=== PATIENT | male | born 1975 | race Caucasian/White ===

== ENCOUNTER 2018-12-07 20:27 | Emergency (ER) | payer OTHER ==
[2018-12-08] MEDS: ACETAMINOPHEN 500 MG TAB PO (00:43)
[2018-12-08] MEDS: IBUPROFEN 800 MG TAB PO (00:43)
[2018-12-08] MEDS: LIDOCAINE 2% VISC 15 ML CUP PO (00:43)
== END 2018-12-08 01:28 | disposition home or self-care (01) ==
LOC: FTE 20:27
DX: J02.9 Acute pharyngitis, unspecified (principal)
CPT/HCPCS: 87880; 99283